=== PATIENT | female | born 1980 | race Caucasian/White ===

== ENCOUNTER → 2018-04-28 09:47 | Outpatient (CLI) | payer BC, SELFPAY ==
[2018-05-01 12:35] LABS: HPV Reflexed? NOT INDICATED
== END ==
PROVIDERS: Visit Provider Obstetrics & Gynecology
DX: Z12.4 Encounter for screening for malignant neoplasm of cervix (principal)
CPT/HCPCS: 88175; G0145

== ENCOUNTER 2020-03-16 22:56 | Emergency (ER) | payer BC, SELFPAY ==
[2020-03-16 22:57] VITALS: BP 131/85; PULSE 84; RESP 16; TEMP 37.4; BMI 27.2
--- NOTE | 2020-03-16 23:32 | ED.DCSUM_ITS ---
History of Present Illness Chief Complaint: Back Informant: Patient, Family Onset: Days - 3 Context: Gradual Onset Timing: Continuous Quality: Aching Location: Lumbar - radiating down RLE to popliteal fossa area Current Severity: Severe Maximum Severity: Severe Worsened by: improves with: Movement, Ambulation - I can't walk now due to pain Relieved by: Remaining Still - and lying supine. Not Relieved By: Medications - Tried Flexeril and [id number] medications Associated Symptoms: Radiation to Right Leg, - - No bowel or bladder dysfunction, numbness in the groin or lower extremity, buttock pain. No abdominal pain or problems urinating, no fevers. Narrative: Patient states she has had chronic issues in her back, soreness in her lumbar spine, however started getting worse several days ago so she saw her chiropractor and had an adjustment. Seem to gradually get worse after that, now shooting down her right lower extremity, and severe to the point of not being able to walk. Patient is healthy otherwise. She has never had an MRI of her back, or had any back surgeries. Prior similar symptoms: Yes, With Prior Back Pain - But this is much more severe Past Medical History - Allergies and Home Meds Allergies/Adverse Reactions: Allergies No Known Allergies Allergy (Verified 03/16/20 23:00) Primary Care Physician: Ashanti Wilkerson PA-C [Primary Care Provider] - (call for appt to be seen this coming week) Lives: Spouse/ Significant Other, With Family Smoking Status: Never smoker Review of Systems General: Denies: Chills, Fever, Sweats Eyes: Denies: Visual changes - bilaterally, Diplopia ENT: Denies: Rhinorrhea, Sore throat Cardiovascular: Denies: Chest pain, Palpitations Respiratory: Denies: Dyspnea, Cough, Dyspnea on exertion Gastrointestinal: Denies: Abdominal pain, Nausea, Vomiting, Diarrhea, Melena, Hematochezia Genitourinary: Denies: Dysuria, Hematuria, Frequency Musculoskeletal: Reports: Back pain - Along with spasms, Extremity Pain. Denies: Neck pain Skin: Denies: Rash, Wounds Neurological: Denies: Headache, Weakness, Numbness Physical Exam Vital Signs/Narrative: Vital Signs Temp Pulse Resp BP 03/16/20 22:57 99.4 F H 84 16 131/85 H Inital Vital Signs reviewed: Yes General: Well nourished, Well developed, - - nad Head: Normocephalic, Atraumatic Eyes: Perrl, EOMI ENT: Moist mucous membranes, No rhinorrhea Neck: Supple, Nontender Respiratory: No distress Abdomen: Soft, Nontender, Nondistended Back: Normal Inspection, Paraspinal Tenderness - Very mild, right SI joint area only. No midline tenderness. No signs of trauma or rash., Positive SLR - Right - Only, exacerbating symptoms to the popliteal area., Negative SLR - Left Extremeties: Nontender, No edema Skin: Normal color, No rash, No Trauma Neuro: Alert, Oriented, Normal Strength, Normal Sensation, Normal DTR, Normal Reflexes - Symmetric bilateral lower extremity, no clonus. Toes downgoing. Psychological: Normal affect, Normal Mood Diagnostic/Tx/Re-eval Clinical Impression(s) from Imaging Studies Lumbar Spine X-Ray 03/16/20 23:59 IMPRESSION: Moderate stool in the visualized colon correlate for constipation. Degenerative changes. No acute fracture identified. Electronically Signed: Kyle Collinsford, at 1:06 EDT Tel , Service support , - Medical Decision Making Patient was treated with Toradol, Norflex, morphine, and prophylactic Zofran. She did have some improvement, although she was still having some back spasms. With little assistance, her and I were able to get her to sit on the side of the bed and stand although she felt her back locking up again, and had to sit, where she is comfortable. Given the fact that sitting is very comfortable, my suspicion for sciatica is much less. Her x-ray showed nothing acute. She has no radicular symptoms shooting down below the knee, just to the knee. I think will be reasonable to treat her supportively, get her to rest over the weekend, since Norflex did not provide symptom resolution, and Flexeril was not helping at all, I will give her a prescription for a few Valium to use over the weekend since she will be resting, and some other analgesics. Follow- up with PCP, we discussed reasons to return, no sign or symptoms of cauda equina syndrome at this time or focal weakness. ED Disposition - Plan for ED Patient: Disposition: Home or Assisted Living Diagnosis: Acute lumbosacral myofascial strain Instructions: ED Back Pain Acute or Chronic, ED LUMBAR RADICULOPATHY Prescriptions: Naproxen [Naprosyn] 500 mg PO BID PRN #20 tab Prescription Printed Oxycodone HCl/Acetaminophen [Percocet 5/325] 1 tab PO Q6H PRN PRN 3 Days #12 tab PRN Reason: Pain Prescription Printed Diazepam [Valium] 5 mg PO Q8 PRN #10 tab PRN Reason: Muscle Spasm Prescription Printed Referrals: Ashanti Wilkerson PA-C [Primary Care Provider] - (call for appt to be seen this coming week) Additional Instructions: The radiculopathy instructions are for your information, I think you are more likely to have musculoskeletal pain than pinched nerve pain but it is certainly not impossible.
[2020-03-16] MEDS: Morphine 4 MG/ML Syringe SC (23:40)
[2020-03-16] MEDS: Ondansetron ODT 4 MG Tablet 8 MG PO (23:40)
[2020-03-16] MEDS: Orphenadrine 60 MG/2 ML Ampul IM (23:42)
[2020-03-16] MEDS: Ketorolac 60 MG/2 ML Vial IM (23:43)
--- NOTE | 2020-03-16 23:59 | RAD_ITS ---
STUDY: X-RAY - LUMBAR SPINE REASON FOR EXAM: Female, 39 years old. Pain TECHNIQUE: 3 view(s) of the lumbar spine were obtained. COMPARISON: None FINDINGS: Mild degenerative changes. No acute fracture or subluxation. Vertebral body heights are maintained. Moderate stool within the visualized colon. RAD/Lumbar Spine 2 or 3 Views IMPRESSION: Moderate stool in the visualized colon correlate for constipation. Degenerative changes. No acute fracture identified. Electronically Signed: Kyle Clifton, at 1:06 EDT Tel , Service support ,
[2020-03-17 02:09] VITALS: BP 112/88; PULSE 72; RESP 14; O2SAT 100
--- NOTE | 2020-03-17 02:11 | ED.RN ---
SENT RX TO PHARMACY.
== END 2020-03-17 02:11 | disposition home or self-care (01) ==
PROVIDERS: Emergency Provider Emergency Medicine; PCP Family Medicine
DX: S39.012A Strain of muscle, fascia and tendon of lower back, initial encounter (principal); X58.XXXA Exposure to other specified factors, initial encounter; Y93.9 Activity, unspecified; Y92.9 Unspecified place or not applicable
CPT/HCPCS: 72100; 96372; 99284

== ENCOUNTER → 2020-05-15 | Outpatient (CLI) | payer BC, SELFPAY ==
[2020-05-18 11:35] LABS: HPV Reflexed? NOT INDICATED
== END | disposition home or self-care (01) ==
LOC: LABSPEC 05-16 09:18
PROVIDERS: PCP Family Medicine; Visit Provider Obstetrics & Gynecology
DX: Z12.4 Encounter for screening for malignant neoplasm of cervix (principal)
CPT/HCPCS: 88175; G0145

== ENCOUNTER → 2023-01-27 | Outpatient (CLI) | payer BC, SELFPAY ==
[2023-02-02 20:07] LABS: HPV APTIMA, High Risk Negative (Negative)
== END | disposition home or self-care (01) ==
LOC: LABSPEC 11:28
PROVIDERS: PCP Family Medicine; Visit Provider Obstetrics & Gynecology
DX: Z12.4 Encounter for screening for malignant neoplasm of cervix (principal)
CPT/HCPCS: 87624; 88175; G0145

== ENCOUNTER → 2023-02-12 | Outpatient (CLI) | payer BC, SELFPAY ==
--- NOTE | 2023-02-12 09:41 | BI_ITS ---
MAMMOGRAPHY - BILATERAL SCREENING REASON FOR EXAM: Female, 42 years old. Routine annual screening examination. PERTINENT HISTORY: Non-contributory. TECHNIQUE: Digital bilateral breast blane (3D mammographic acquisition) in the CC and MLO projections. 2-D mediolateral oblique (MLO) and craniocaudad (CC) views of both breasts were obtained. CAD: Full Field Digital Mammography with Computer Added Detection was performed. COMPARISON: None. Baseline examination. FINDINGS: Breast Composition: The breasts are heterogeneously dense, which may obscure small masses. There are no dominant masses or suspicious calcifications. No other significant abnormalities are identified. BI/SCRN MAMM (CAD)W/BLANE BILAT IMPRESSION: Negative screening mammogram. Yearly followup mammogram recommended. (A) ASSESSMENT CATEGORY: BIRADS Category 1: Negative. A letter regarding these results will be sent to the patient by the facility within 30 days. Approximately 10% of breast cancers are not detected by mammography. A normal mammogram should not delay biopsy of a clinically suspicious abnormality. [id number] Electronically Signed: Lui Everett MD at 11:11 EDT ,
== END | disposition home or self-care (01) ==
LOC: OPBI 09:39
PROVIDERS: PCP Family Medicine; Referring Provider Obstetrics & Gynecology; Visit Provider Obstetrics & Gynecology
DX: Z12.31 Encounter for screening mammogram for malignant neoplasm of breast (principal)
CPT/HCPCS: 77063; 77067

== ENCOUNTER → 2024-05-27 | Outpatient (CLI) | payer BC, SELFPAY ==
--- NOTE | 2024-05-27 11:47 | BI_ITS ---
MAMMOGRAPHY - BILATERAL SCREENING REASON FOR EXAM: Female, 44 years old. Routine annual screening examination. PERTINENT HISTORY: Non-contributory. TECHNIQUE: Digital bilateral breast blane (3D mammographic acquisition) in the CC and MLO projections. 2-D mediolateral oblique (MLO) and craniocaudad (CC) views of both breasts were obtained. CAD: Full Field Digital Mammography with Computer Added Detection was performed. COMPARISON: Comparison is made with prior examination February 12, 2023. FINDINGS: Breast Composition: The breasts are heterogeneously dense, which may obscure small masses. Questionable area of architectural distortion in the upper lateral aspect of the left breast. The patient will be recalled for additional views including 90 degree lateral and compression spot views in the craniocaudad projection. Stable benign-appearing right axillary lymph nodes. No other significant abnormalities are identified. BI/SCRN MAMM (CAD)W/BLANE BILAT IMPRESSION: Questionable architectural distortion in the upper lateral aspect of the left breast as described. The patient will be recalled for additional views. Recall Side: Left Breast ASSESSMENT CATEGORY: BIRADS Category 0: Incomplete. Need additional imaging evaluation. A letter regarding these results will be sent to the patient by the facility within 30 days. Approximately 10% of breast cancers are not detected by mammography. A normal mammogram should not delay biopsy of a clinically suspicious abnormality. [id number] Electronically Signed: Lui Everett MD at 13:44 EDT ,
== END | disposition home or self-care (01) ==
PROVIDERS: Referring Provider Nurse Practitioner Family; Visit Provider Nurse Practitioner Family
DX: Z12.31 Encounter for screening mammogram for malignant neoplasm of breast (principal)
CPT/HCPCS: 77063; 77067

== ENCOUNTER → 2024-06-01 | Outpatient (CLI) | payer BC, SELFPAY ==
--- NOTE | 2024-06-01 14:20 | US_ITS ---
STUDY: ULTRASOUND BREAST - LEFT REASON FOR EXAM: Female, 44 years old. Abnormal screening mammogram. TECHNIQUE: Axial and longitudinal images of the LEFT breast were performed with a high resolution ultrasound transducer. # OF IMAGES: 42 COMPARISON: Comparison is made with prior mammogram dated May 27, 2024 and June 01, 2028. FINDINGS: LEFT Breast: The lateral upper aspect of the left breast was examined with ultrasound. There is a heterogeneously dense fibroglandular tissue. No sonographic abnormality is seen. US/Breast Limited Unilateral IMPRESSION: No sonographic abnormality is seen. ASSESSMENT CATEGORY: BIRADS Category 1: Negative. A letter regarding these results will be sent to the patient by the facility within 30 days. Electronically Signed: Lui Everett MD at 10:00 EDT ,
--- NOTE | 2024-06-01 14:20 | BI_ITS ---
MAMMOGRAPHY - UNILATERAL DIAGNOSTIC: LEFT BREAST REASON FOR EXAM: Female, 44 years old. Abnormal screening mammogram. PERTINENT HISTORY: Non-contributory. TECHNIQUE: 90 degree lateral and compression spot views in the mediolateral oblique and craniocaudal projections were obtained. CAD: Full Field Digital Mammography with Computer Added Detection was performed. COMPARISON: Comparison is made with prior study May 27, 2024. FINDINGS: Breast Composition: The breasts are heterogeneously dense, which may obscure small masses. The previously seen area of architectural distortion is not seen at this time. Further correlation with ultrasound recommended. No other significant abnormalities are identified. BI/DIAG MAMM W/CAD, UNILAT IMPRESSION: Negative unilateral diagnostic mammogram. Sonographic correlation is recommended for further evaluation. ASSESSMENT CATEGORY: BIRADS Category 0: Incomplete. Need additional imaging evaluation. A letter regarding these results will be sent to the patient by the facility within 30 days. Approximately 10% of breast cancers are not detected by mammography. A normal mammogram should not delay biopsy of a clinically suspicious abnormality. Electronically Signed: Lui Everett MD at 14:57 EDT ,
== END | disposition home or self-care (01) ==
LOC: OPBI 14:15
PROVIDERS: Referring Provider Nurse Practitioner Family; Visit Provider Nurse Practitioner Family
DX: R92.8 Other abnormal and inconclusive findings on diagnostic imaging of breast (principal)
CPT/HCPCS: 76642; 77065